=== PATIENT | male | born 1935 | race Caucasian/White ===

== ENCOUNTER 2019-07-28 13:54 | Day surgery (SDC) | payer MEDICARE ==
[2019-07-23 10:51] LABS: BASOPHILS % (AUTO) 0.5 % (0-1); EOSINOPHILS # (AUTO) 0.1 X10'3 (0-0.9); EOSINOPHILS % (AUTO) 2.1 % (0-6); HEMATOCRIT 41.3 % (42.0-52.0); HEMOGLOBIN 14.3 g/dl (14.0-17.9); LYMPHOCYTES # (AUTO) 1.5 X10'3 (1.1-4.8); LYMPHOCYTES % (AUTO) 21.8 % (21-51); MEAN CORPUSCULAR HGB CONC 34.6 g/dL (33.0-36.5); MEAN CORPUSCULAR VOLUME 98.3 FL (78-98); MEAN PLATELET VOLUME 8.1 FL (7.4-10.4); MONOCYTES # (AUTO) 0.6 X10'3 (0-0.9); MONOCYTES % (AUTO) 9.4 % (2-12); NEUTROPHILS # (AUTO) 4.5 X10'3 (1.8-7.7); NEUTROPHILS % (AUTO) 66.2 % (42-75); PLATELET COUNT 152 X10'3 (140-440); RED CELL DISTRIBUTION WIDTH 13.2 % (11.5-14.5); WHITE BLOOD COUNT 6.8 X10'3 (4.5-11.0)
[2019-07-23 11:01] LABS: ALBUMIN 3.8 G/DL (3.4-5.0); ANION GAP 9 (8-16); BLOOD UREA NITROGEN 21 MG/DL (7-18); BUN/CREATININE RATIO 14.9 (5.4-32.0); CALCIUM 8.9 MG/DL (8.5-10.1); CHLORIDE 103 MMOL/L (99-107); CREATININE 1.41 MG/DL (0.60-1.10); GLUCOSE 112 MG/DL (70-104); POTASSIUM 4.2 MMOL/L (3.5-5.1); SODIUM 141 MMOL/L (135-145); TOTAL CARBON DIOXIDE 29.5 MMOL/L (24-32); eGFR 48 ML/MIN
[2019-07-23 11:03] LABS: PARTIAL THROMBOPLASTIN TIME 26 SECONDS (22-32)
[2019-07-28] VITALS (8 sets, daily range): BP systolic 131–144; BP diastolic 68–95
[~2019-07-28] VITALS: Ht 175.3 cm; Wt 100.7 kg
[~2019-07-28 13:54] MED LIST: CALC-855 PO; DOCU-28 PO; ERGO500014 PO; FLO0.4C PO; HYDR-3780 PO; HYDR-4383 PO; HYDR5TAB8 PO; KRIL1CAP6 PO; LEVO100T PO; MULT-785 PO; SENN1TAB61 PO; UBID100C16 PO
[2019-07-28] MEDS ORDERED: diphenhydrAMINE 25mg capsule PO PRN (14:20)
[2019-07-28] MEDS ORDERED: LORazepam 0.5 MG tablet PO PRN (14:20)
[2019-07-28] MEDS ORDERED: normal saline 1,000 ML IV SCH (14:20)
[2019-07-28] MEDS ORDERED: HYDR-3968 PO ×2 (15:15→15:16)
[2019-07-28] MEDS ORDERED: ASPI81TA52 PO (15:18)
[2019-07-28] MEDS ORDERED: HYDROCORTISONE PO (15:24)
[2019-07-28] MEDS ORDERED: midazolam 2 mg/2 ml injection ONE (16:25)
[2019-07-28] MEDS ORDERED: LIDOcaine 1% (10mg/ml)w/preservative injection 20ml MDV ONE ×2 (16:26→16:32)
[2019-07-28] MEDS ORDERED: iohexol 350MG/ML 100ml bottle IV ONE (16:26)
[2019-07-28] MEDS ORDERED: fentaNYL/PF 50MCG/1 ML 2ML syringe ONE ×2 (16:26→17:09)
[2019-07-28] MEDS ORDERED: iohexol 350 MG/ML 50ML vial IV ONE ×2 (17:17→17:23)
--- NOTE | 2019-07-28 18:32 | NUR ---
X3 ATTEMPTS TO CALL [facility] FOR REFERRAL, NO ANSWER AND NO ABILITY TO LEAVE MESSAGE. FACE SHEET KEPT FOR DAY SHIFT ON 07-29- TO ASSIST WITH REFERRAL. Addendum: 07/28/19 at 1833 by Lindsay Craven RN Amended: Links added.
[2019-07-28] MEDS ORDERED: HYDROcodone/acetaminophen 5mg/325mg tablet PO PRN (18:35)
[2019-07-28] MEDS ORDERED: acetaminophen 325mg tablet PO PRN (18:35)
[2019-07-28] MEDS ORDERED: ondansetron/PF 4mg/2ml inj IV PRN (18:35)
[2019-07-28] MEDS ORDERED: proCHLORperazine 10 MG/2 ml inj IV PRN (18:35)
[2019-07-28] MEDS ORDERED: OXAZEpam 15mg capsule PO PRN (18:35)
[2019-07-28] MEDS ORDERED: HYDROcodone/acetaminophen 10/325mg tab PO PRN (18:35)
== END 2019-07-28 18:10 | disposition home or self-care (01) ==
LOC: SSTAY O 13:54
PROVIDERS: ATTEND Internal Medicine Interventional Cardiology
DX: I35.0 Nonrheumatic aortic (valve) stenosis (principal); I25.10 Atherosclerotic heart disease of native coronary artery without angina pectoris; N40.0 Benign prostatic hyperplasia without lower urinary tract symptoms; G47.33 Obstructive sleep apnea (adult) (pediatric); E03.9 Hypothyroidism, unspecified; I10 Essential (primary) hypertension; Z85.820 Personal history of malignant melanoma of skin; Z95.0 Presence of cardiac pacemaker; Z79.899 Other long term (current) drug therapy; Z79.82 Long term (current) use of aspirin; Z87.891 Personal history of nicotine dependence; Z86.73 Personal history of transient ischemic attack (TIA), and cerebral infarction without residual deficits; Z79.01 Long term (current) use of anticoagulants
CPT/HCPCS: 36415; 76937; 80048; 85025; 85610; 85730; 93005; 93454; 93567; 99152; 99153; C1760; C1769; C1887; J1644; J2001; J2250; J3010; J7030; Q0163; Q9967; A4620; A6258; C1894

== ENCOUNTER 2024-07-14 11:08 | Day surgery (SDC) | payer MEDICARE ==
[2024-07-13 10:17] LABS: BASOPHILS # (AUTO) 0.1 X10'3 (0-0.2); BASOPHILS % (AUTO) 0.9 % (0-1); EOSINOPHILS # (AUTO) 0.2 X10'3 (0-0.9); EOSINOPHILS % (AUTO) 2.5 % (0-6); HEMATOCRIT 38.3 % (42.0-52.0); HEMOGLOBIN 12.9 g/dl (14.0-17.9); LYMPHOCYTES # (AUTO) 1.8 X10'3 (1.1-4.8); LYMPHOCYTES % (AUTO) 21.3 % (21-51); MEAN CORPUSCULAR HEMOGLOBIN 35.8 PG (27.0-31.0); MEAN CORPUSCULAR HGB CONC 33.7 g/dL (33.0-36.5); MEAN CORPUSCULAR VOLUME 106.2 FL (78-98); MEAN PLATELET VOLUME 8.1 FL (7.4-10.4); MONOCYTES % (AUTO) 11.9 % (2-12); NEUTROPHILS # (AUTO) 5.4 X10'3 (1.8-7.7); NEUTROPHILS % (AUTO) 63.4 % (42-75); PLATELET COUNT 132 X10'3 (140-440); RED BLOOD COUNT 3.61 X10'6 (4.70-6.10); RED CELL DISTRIBUTION WIDTH 16.7 % (11.5-14.5); WHITE BLOOD COUNT 8.5 X10'3 (4.5-11.0)
[2024-07-13 10:31] LABS: ALBUMIN 3.6 G/DL (3.4-5.0); ANION GAP 9 (8-16); APTT 39 SECONDS (22-32); BLOOD UREA NITROGEN 38 MG/DL (7-18); BUN/CREATININE RATIO 16.7 (10.0-20.0); CALCIUM 8.7 MG/DL (8.5-10.1); CHLORIDE 105 MMOL/L (99-107); CHOL/HDL RATIO 3.1 (0.00-4.99); CHOLESTEROL 121 MG/DL (0-200); CREATININE 2.27 MG/DL (0.60-1.10); GLUCOSE 125 MG/DL (70-104); HDL CHOLESTEROL 39 MG/DL (35-60); INR 1.9 INR; LDL CHOLESTEROL 75 MG/DL (50-100); POTASSIUM 4.5 MMOL/L (3.5-5.1); SODIUM 140 MMOL/L (135-145); TOTAL CARBON DIOXIDE 26.3 MMOL/L (24-32); TRIGLYCERIDES 50 MG/DL (20-135); eGFR 27 ML/MIN
[2024-07-13 10:36] LABS: PROTHROMBIN TIME 18.7 SECONDS (9.0-12.0)
[~2024-07-14] VITALS: Ht 175.3 cm; Wt 112.0 kg
[2024-07-14] VITALS (12 sets, daily range): BP systolic 109–126; BP diastolic 52–90; PULSE 60–89; RESP 16; TEMP 97.5; O2SAT 91–95
[~2024-07-14 11:08] MED LIST changes: +ASPI81TA52 PO; -CALC-855 PO; -DOCU-28 PO; -ERGO500014 PO; -HYDR-3780 PO; +HYDR-3968 PO; +HYDR-4318 PO; -HYDR-4383 PO; -HYDR5TAB8 PO; -KRIL1CAP6 PO; +ROSU10TA72 PO; -UBID100C16 PO
[2024-07-14] MEDS ORDERED: MELA5TAB12 PO (12:08)
[2024-07-14] MEDS ORDERED: VIBE75TA PO (12:08)
[2024-07-14] MEDS ORDERED: ACET-812 PO (12:08)
[2024-07-14] MEDS ORDERED: AMI200T PO (12:08)
[2024-07-14] MEDS ORDERED: HYDR5TAB14 PO (12:08)
[2024-07-14] MEDS ORDERED: RIVA20TA PO (12:08)
[2024-07-14] MEDS ORDERED: HYDR50TA65 PO (12:08)
[2024-07-14] MEDS ORDERED: FINA5TAB11 PO (12:08)
[2024-07-14] MEDS: MIDAZolam 1mg/ml 10ml vial IV ONE (13:32)
[2024-07-14] MEDS: fentaNYL/PF 50MCG/1 ML 2ML syringe IV ONE (13:33)
[2024-07-14] MEDS: normal saline 1000ml 1,000 ML IV SCH (13:34)
== END 2024-07-14 16:00 | disposition home or self-care (01) ==
LOC: SSTAY O 11:08
PROVIDERS: ATTEND Internal Medicine Interventional Cardiology
DX: I48.91 Unspecified atrial fibrillation (principal); I11.0 Hypertensive heart disease with heart failure; I50.9 Heart failure, unspecified; I25.119 Atherosclerotic heart disease of native coronary artery with unspecified angina pectoris; E78.00 Pure hypercholesterolemia, unspecified; E03.9 Hypothyroidism, unspecified; I35.0 Nonrheumatic aortic (valve) stenosis; G47.33 Obstructive sleep apnea (adult) (pediatric); Z79.01 Long term (current) use of anticoagulants; Z79.890 Hormone replacement therapy; Z79.899 Other long term (current) drug therapy; Z95.0 Presence of cardiac pacemaker
CPT/HCPCS: 36415; 80048; 80061; 85025; 85610; 85730; 92960; 93005; A6402; J2250; J3010; J7030; Z7610; A6449

== ENCOUNTER 2024-07-24 12:30 | Outpatient (CLI) | payer MEDICARE ==
[~2024-07-24 12:30] MED LIST changes: +ACET-812 PO; +AMI200T PO; -ASPI81TA52 PO; +FINA5TAB11 PO; -HYDR-3968 PO; -HYDR-4318 PO; +HYDR50TA65 PO; +HYDR5TAB14 PO; +MELA5TAB12 PO; +RIVA20TA PO; -ROSU10TA72 PO; +VIBE75TA PO
== END 2024-07-24 23:59 | disposition home or self-care (01) ==
LOC: MRI 12:30
PROVIDERS: ATTEND Family Medicine
DX: M89.311 Hypertrophy of bone, right shoulder (principal); M25.511 Pain in right shoulder
CPT/HCPCS: 73221